=== PATIENT | female | born 1940 | race Hispanic/Latino ===

== ENCOUNTER 2017-06-09 18:27 | Emergency (ER) | payer OTHER ==
[~2017-06-09] VITALS: Ht 162.6 cm; Wt 70.9 kg
[~2017-06-09 18:27] MED LIST: ATENOLOL25 M1 PO; JANUMET 50/11 TABLET PO
[2017-06-09 18:38] VITALS: BP 161/91
[2017-06-09] MEDS ORDERED: FLEXERIL10 MG PO (21:17)
== END 2017-06-09 21:49 | disposition home or self-care (01) ==
LOC: EME 18:27
DX: S16.1XXA Strain of muscle, fascia and tendon at neck level, initial encounter (principal); S39.012A Strain of muscle, fascia and tendon of lower back, initial encounter; V89.2XXA Person injured in unspecified motor-vehicle accident, traffic, initial encounter; Y92.414 Local residential or business street as the place of occurrence of the external cause; E11.9 Type 2 diabetes mellitus without complications
CPT/HCPCS: 72040; 72100; 99281; 99283